=== PATIENT | male | born 1960 | race Caucasian/White ===

== ENCOUNTER 2016-08-02 12:20 | Emergency (ER) ==
[2016-08-02 12:25] VITALS: BP 142/85
[2016-08-02] MEDS ORDERED: BENADRYL IM ONE (12:31)
[2016-08-02] MEDS ORDERED: DECADRON IM ONE (12:31)
--- NOTE | 2016-08-02 12:37 | PROVIDER DOCUMENTATION ---
HPI-Rash/Wound/ReCheck - General Chief Complaint: Rash Stated Complaint: rash Time Seen by Provider: 08/02/16 12:26 Source: patient Allergies/Adverse Reactions: Allergies Allergy/AdvReac Type Severity Reaction Status Date / Time No Known Allergies Allergy Verified 08/18/14 01:13 Home Medications: Home Medication List Medication Instructions Recorded Confirmed Last Taken Type Fentanyl 25 mcg TD Q3D 04/21/13 04/29/15 04/26/15 History Losartan/Hydrochlorothiazide 1 each PO DAILY 04/21/13 04/29/15 04/29/15 05:15 History [Hyzaar 100/25 Tablet] Oxycodone HCl [Roxicodone] 30 mg PO 4XDAY 04/21/13 04/29/15 04/29/15 05:20 History Albuterol Sulfate Inhaler 1 - 2 puff INH DAILY 04/28/15 04/29/15 04/28/15 21:00 History [Ventolin Hfa] Albuterol Sulfate Inhaler 2 puff INH Q6H PRN PRN 04/28/15 04/29/15 Unknown History [Ventolin Hfa] Diazepam [Valium] 2 mg PO BID 04/28/15 04/29/15 04/28/15 21:00 History Gabapentin [Neurontin] 600 mg PO PRN PRN 04/28/15 04/28/15 Unknown History Hydrocodone/Acetaminophen [[place] 1 each PO BID 04/28/15 04/29/15 04/29/15 05:30 History 10-325 Tablet] Omeprazole 40 mg PO DAILY #30 capsule. 04/29/15 Unknown Rx Calamine/Zinc Oxide [Calamine 180 ml TP 2-4XDAY PRN PRN #1 lotion 08/02/16 Unknown Rx Lotion] Famotidine [Pepcid] 20 mg PO DAILY #20 tablet 08/02/16 Unknown Rx Hydroxyzine [Atarax] 50 mg PO TID PRN #10 tablet 08/02/16 Unknown Rx Methylprednisolone [Medrol Dosepak] 4 mg PO DIRECTED #1 package 08/02/16 Unknown Rx - History of Present Illness-Dermatology Nature of Presenting Problem: This pt presents today c complaints of an itchy, red rash to the his face, scalp and upper anterior chest wall X 5 days. I asked him about his hygeine products and he does report that his started shopping somewhere new and last week he started using new shampoo, body soap and detergents. No throat swelling. No other issues or complaints. Location: reports: chest, face, scalp Quality: reports: itchy Severity: reports: moderate Onset/Duration: reports: 1 week ago Timing: reports: still present Context/Associated Symptoms: reports: rash Identifiable cause?: Yes (see hpi) Exposure: reports: other (see hpi) Similar Symptoms Previously?: No Recently seen or treated by another doctor?: No Review of Systems - Adult - REVIEW OF SYSTEMS - ADULT Constitutional: reports: no symptoms reported. denies: chills, fever Eyes: reports: no symptoms reported. denies: discharge, dry eyes Ears, Nose, Mouth & Throat: reports: no symptoms reported. denies: ear discharge, ear pain Cardiovascular: reports: no symptoms reported. denies: chest pain, edema Respiratory: reports: no symptoms reported. denies: chronic cough, cough Gastrointestinal: reports: no symptoms reported. denies: abdominal pain, hematemesis Genitourinary: reports: no symptoms reported. denies: dysuria, discharge Musculoskeletal: reports: no symptoms reported. denies: bone pain, back pain Integumentary: reports: itching, rash. denies: hives, hair loss Neurological: reports: no symptoms reported. denies: ataxia, dizziness/vertigo Psychiatric: reports: no symptoms reported. denies: anxiety, anti-depressant use Endocrine: reports: no symptoms reported Hematologic/Lymphatic: reports: no symptoms reported Allergic/Immunologic: reports: no symptoms reported All Other Systems: Reviewed and Negative Past History - Adult - PAST MEDICAL HISTORY-ADULT Review of Records: reports: Old Records Reviewed, Nursing Assessment Review, Medications Reviewed, Social history reviewed & non-contributory. Major Childhood Illnesses: reports: denies history Cardiovascular: reports: HTN, hyperlipidemia Respiratory: reports: COPD Gastrointestinal: reports: denies history Obstetrical/Gynecological: reports: denies history Genitourinary: reports: denies history Musculoskeletal: reports: chronic pain Neurological: reports: denies history Endocrine/Immune: reports: denies history Other Conditions: reports: denies history - FAMILY HISTORY Family History: reviewed, not pertinent Physical Exam-General - PHYSICAL EXAM-ADULT Initial Vital Signs Reviewed: Yes - CONSTITUTIONAL General Appearance: appears well, alert, no apparent distress - EYES Eyes: PERRL/EOMI, pink conjunctivae - HEAD, EARS, NOSE, MOUTH & THROAT HENMT: normocephalic/atraumatic, moist mucous membranes, normal ENT inspection - NECK Neck: non-tender, full range of motion, supple, normal inspection - RESPIRATORY Respiratory: chest non-tender, lungs clear, normal breath sounds, no pleuratic chest pain, no respiratory distress, no accessory muscle use - CARDIOVASCULAR Cardiovascular: normal peripheral pulses, regular rate, rhythm - GASTROINTESTINAL (ABDOMEN) Abdominal Exam: normal bowel sounds, non tender, soft - MUSCULOSKELETAL Back Exam: normal inspection Extremity: normal range of motion, non-tender, normal gait, normal inspection - SKIN Integumentary: normal turgor, warm/dry, rash (appears to be contact dermatitis) - NEUROLOGIC Neurologic: grossly normal, no motor/sensory deficits. negative: facial droop, focal weakness, motor weakness, sensory deficit Progress - PLAN OF CARE/RESULTS Progress/Plan/Lab Results: Orders Category Date Time Status Dexamethasone [Decadron] Med 08/02/16 12:31 Discontinued 10 mg IM NOW ONE Diphenhydramine [Benadryl] Med 08/02/16 12:31 Discontinued 25 mg IM NOW ONE Vital Signs Temp Pulse Resp BP Pulse Ox 08/02/16 12:23 97.6 F 67 16 142/85 99 No Known Allergies Allergy (Verified 08/18/14 01:13) Fentanyl 25 mcg TD Q3D 04/21/13 Losartan/Hydrochlorothiazide [Hyzaar 100/25 Tablet] 1 each PO DAILY 04/21/13 Oxycodone HCl [Roxicodone] 30 mg PO 4X04/21/13 Albuterol Sulfate Inhaler [Ventolin Hfa] 1 - 2 puff INH DAILY 04/28/15 Albuterol Sulfate Inhaler [Ventolin Hfa] 2 puff INH Q6H PRN PRN 04/28/15 Diazepam [Valium] 2 mg PO BID 04/28/15 Gabapentin [Neurontin] 600 mg PO PRN PRN 04/28/15 Hydrocodone/Acetaminophen [[place] 10-325 Tablet] 1 each PO BID 04/28/15 Omeprazole 40 mg PO DAILY #30 capsule. 04/29/15 Departure - Departure Time of Disposition Order: 12:35 DIAGNOSIS: Contact dermatitis Qualifiers: Contact dermatitis type: irritant Contact dermatitis trigger: detergents Qualified Code(s): L24.0 - Irritant contact dermatitis due to detergents Disposition: HOME 01 Certified Medical Emergency: Urgent Condition: Good Additional Instructions: Take medication as prescribed. As we discussed, go back to your old products. Follow up with a family preservation worker as needed. ED Follow Up Instructions: You have been treated by a care provider in the Emergency Department. These instructions are being provided to you so you can have an understanding of how to care for yourself upon discharge. Upon discharge from the Emergency Department, you are responsible for making arrangements for follow-up care by a physician of your choice. Take all prescribed medications as directed. Return to the Emergency Department immediately for any new or worsening symptoms. You may call the Physician Referral phone number at [phone] to obtain a list of Physicians who are taking new patients. Prescriptions: Calamine/Zinc Oxide [Calamine Lotion] 180 ml TP 2-4XDAY PRN PRN #1 lotion PRN Reason: Itching Hydroxyzine [Atarax] 50 mg PO TID PRN #10 tablet PRN Reason: Itching Methylprednisolone [Medrol Dosepak] 4 mg PO DIRECTED #1 package Famotidine [Pepcid] 20 mg PO DAILY #20 tablet Referrals: Jaiden Traylor MD [Primary Care Provider] - Kayla Nick MD [STAFF PHYSICIAN] - Attestation - Physician/ [place] Attestation Patient care was provided by Advanced Practice Provider:: Yes Advanced Practice Provider:: Emery Navarrete Advanced Practice Provider documentation review:: The Mid-level provider documentation, treatment plan and medical decision making was reviewed by the physician who agrees with all treatment and medical decision making by the MLP.
== END 2016-08-02 13:25 | disposition home or self-care (01) ==
LOC: ED 12:20
DX: L24.0 Irritant contact dermatitis due to detergents (principal); R21 Rash and other nonspecific skin eruption; L29.9 Pruritus, unspecified; I10 Essential (primary) hypertension; E78.5 Hyperlipidemia, unspecified; J44.9 Chronic obstructive pulmonary disease, unspecified; G89.29 Other chronic pain; Z79.899 Other long term (current) drug therapy
CPT/HCPCS: J1200